=== PATIENT | female | born 1985 | race Caucasian/White ===

== ENCOUNTER 2019-01-05 06:04 | Inpatient (IN) ==
[2019-01-05] MEDS ORDERED: ONDANSETRON 4 MG/2 ML VIAL IV PRN (06:11)
[2019-01-05] MEDS ORDERED: LACTATED RINGERS 500 ML IV PRN (06:11)
[2019-01-05] MEDS ORDERED: BUTORPHANOL 2 MG/ML VIAL IV PRN (06:11)
[2019-01-05] MEDS ORDERED: OXYTOCIN/LR 20 UNIT/1,000 ML BAG IV SCH (06:30)
[2019-01-05] MEDS: LACTATED RINGERS 1,000 ML IV SCH ×2 (06:34→11:47)
[2019-01-05] MEDS ORDERED: FAMOTIDINE 20 MG/2 ML VIAL IV ONE (06:52)
[2019-01-05] MEDS ORDERED: diphenhydrAMINE 50 MG/1 ML VIAL IV PRN (06:52)
[2019-01-05] MEDS ORDERED: CITRIC ACID/SODIUM CITRATE 30 ML UDCUP PO ONE (06:52)
[2019-01-05] MEDS ORDERED: PROMETHAZINE 25 MG/1 ML VIAL IM ONE (06:52)
[2019-01-05] MEDS ORDERED: NALOXONE 0.4 MG/ML VIAL IV PRN (06:52)
[2019-01-05] MEDS ORDERED: ePHEDrine 50 MG/ML AMP IV PRN (06:52)
[2019-01-05] MEDS ORDERED: hydrOXYzine HCL 25 MG/1 ML VIAL IM PRN (06:52)
[2019-01-05] MEDS ORDERED: fentaNYL 2 MCG/ROPIV 0.2% EPID 100 ML EPIDURAL SCH (07:00)
[2019-01-05 07:03] LABS: Basophils % 0.1 % (0.0-0.8); Eosinophils # 0.1 10*3/uL (0.0-0.87); Eosinophils % 0.7 % (0.00-10.9); Hematocrit 35.4 VOL% (35.7-47.0); Hemoglobin 10.7 GM/DL (12.0-16.0); Immature Granulocytes % 0.4 %; Immature Granulocytes Absolute 0.03 #; Lymphocytes # 1.7 10*3/uL (1.4-4.0); Lymphocytes % 25.3 % (21.3-54.2); Mean Corpuscular HGB Conc 30.2 GM/DL (32-36); Mean Corpuscular Volume 78.1 FL (87-102); Mean Platelet Volume 11.5 FL (9.6-12.0); Monocytes % 7.7 % (1.7-12.7); Neutrophils % 65.8 % (38.7-73.9); Platelet Count 222 T/CUMM (130-400); Red Blood Count 4.53 MC/CUMM (3.8-5.5); Red Cell Distribution Width 14.6 % (9.3-17.3); White Blood Count 6.7 T/CUMM (4-12)
[2019-01-05] MEDS ORDERED: LACTATED RINGERS 1,000 ML IV ONE (07:06)
[2019-01-05 07:21] LABS: Albumin 2.7 G/DL (3.4-5.0); Bilirubin,Total 0.6 MG/DL (0.2-1.0); Calcium 8.6 MG/DL (8.5-10.1); Osmolality,Calculated 274.7 MOS/KG (273-304); Total Protein 7.1 G/DL (6.4-8.3)
[2019-01-05 10:36] LABS: Apearance,Urine CLEAR (Clear); Bacteria,Urine Occasional /HPF (Few); Bilirubin,Urine Negative (Negative); Blood, Urine Negative (Negative); Glucose,Urine (UA) Negative (Negative); Ketones,Urine 5 mg/dL (Negative); Mucus,Urine Occasional /LPF (Occasional); Nitrite,Urine Negative (Negative); Protein,Urine Negative; RBC,Urine <1 /HPF (0-4); Squamous Epithelial Cell,Urine Occasional /HPF (0-10); Urine Color Yellow (Yellow); Urine Specific Gravity 1.015 (1.001-1.035); Urine Urobilinogen < 2.0 EU/DL (0.2-1.0); WBC,Urine 2 /HPF (0-6)
[2019-01-05] MEDS ORDERED: miSOPROStol 200 MCG TABLET ONE (12:35)
[2019-01-05] MEDS ORDERED: METHYLERGONOVINE 0.2 MG/1 ML AMP ONE (12:35)
[2019-01-05] MEDS ORDERED: CARBOPROST TROMETHAMINE 250 MCG/ML AMP IM ONE (12:36)
[2019-01-05] MEDS ORDERED: LIDOCAINE 1% 50 ML VIAL ONE (12:51)
[2019-01-05] MEDS ORDERED: METHYLERGONOVINE 0.2 MG/1 ML AMP IM ONE (13:07)
[2019-01-05] MEDS ORDERED: IBUPROFEN 800 MG TABLET PO ONE (15:31)
[2019-01-05] MEDS ORDERED: OXYTOCIN/LR 20 UNIT/1,000 ML BAG IV ONE (15:53)
[2019-01-05] MEDS ORDERED: BENZOCAINE 20%/MENTHOL 0.5% SPRAY 56 GM CAN TOP PRN (20:34)
[2019-01-05] MEDS: DOCUSATE SODIUM 100 MG CAPSULE PO SCH (20:45)
[2019-01-05] MEDS ORDERED: oxyCODONE/ACETAMINOPHEN 5-325 MG TABLET PO PRN (23:21)
[2019-01-06 07:09] LABS: Basophils % 0.2 % (0.0-0.8); Eosinophils # 0.1 10*3/uL (0.0-0.87); Eosinophils % 1.2 % (0.00-10.9); Hematocrit 28.1 VOL% (35.7-47.0); Immature Granulocytes % 0.5 %; Immature Granulocytes Absolute 0.04 #; Lymphocytes # 2.4 10*3/uL (1.4-4.0); Lymphocytes % 29.6 % (21.3-54.2); Mean Corpuscular HGB Conc 29.2 GM/DL (32-36); Mean Corpuscular Volume 80.1 FL (87-102); Mean Platelet Volume 11.1 FL (9.6-12.0); Monocytes % 9.8 % (1.7-12.7); Neutrophils % 58.7 % (38.7-73.9); Red Cell Distribution Width 14.5 % (9.3-17.3); White Blood Count 8.1 T/CUMM (4-12)
[2019-01-06 07:18] LABS: Hemoglobin 8.2 GM/DL (12.0-16.0); Red Blood Count 3.51 MC/CUMM (3.8-5.5)
[2019-01-06 07:19] LABS: Platelet Count 170 T/CUMM (130-400)
[2019-01-06] MEDS: IBUPROFEN 800 MG TABLET PO PRN ×2 (08:37→16:10)
[2019-01-06] MEDS: DOCUSATE SODIUM 100 MG CAPSULE PO SCH ×2 (10:30→21:04)
[2019-01-06] MEDS ORDERED: ACETAMINOPHEN 500 MG TABLET PO PRN (13:15)
[2019-01-07 07:32] VITALS: BP 101/59
[2019-01-07] MEDS: DOCUSATE SODIUM 100 MG CAPSULE PO SCH (09:27)
[2019-01-07] MEDS: IBUPROFEN 800 MG TABLET PO PRN (09:27)
== END 2019-01-07 11:15 | disposition home or self-care (01) | DRG 807 ==
LOC: N.LDOUT 06:04 → N.LD 06:07 → N.OB 16:44
PROVIDERS: ADMIT Obstetrics & Gynecology; ATTEND Obstetrics & Gynecology